=== PATIENT | female | born 1965 | race Caucasian/White ===

== ENCOUNTER → 2021-04-09 | Outpatient (CLI) | payer OTHER ==
[~2021-04-09] MED LIST: AMLO5 PO; CITA20 PO; ESCI20; ESTMEDA PO; FLUO20 PO; LAMO25; LEVSOD50 PO; LORA1; LOVA20 PO; MEDR2.5 PO; PANT40 PO; SUCR1SU PO; TOPI25 PO
[2021-04-11 18:53] LABS: CORONAVIRUS (COVID19) CSH-NRL Negative (Negative)
== END ==
LOC: LAB 14:23 → LAB EV 14:23 → LAB SHORT 14:23
PROVIDERS: Physician Assistant Medical
DX: U07.1 COVID-19 (principal); Z20.822 Contact with and (suspected) exposure to COVID-19
CPT/HCPCS: U0003

== ENCOUNTER 2021-05-30 09:42 | Inpatient (IN) | payer OTHER ==
[~2021-05-30] VITALS: Ht 162.6 cm; Wt 76.0 kg
--- NOTE | 2021-05-30 10:32 | NUR ---
05/30/21 Lisandra2 Leonora Acuña CALL LIGHT WITHIN REACH.
--- NOTE | 2021-05-30 11:25 | NUR ---
05/30/21 1125 [address] USED FOR CHOLANGIOGRAM DURING SURGERY BY DR WESLEY.
--- NOTE | 2021-05-30 14:58 | NUR ---
05/30/21 1458 JAMISON HAGEN FIRST DOSE FENTANYL 25MCG GIVEN 1450- PAIN 02/02
--- NOTE | 2021-05-30 19:26 | NUR ---
SHIFT SUMMARY SINCE ARRIVING TO THE UNIT THIS AFTERNOON, PT HAS DONE WELL. UP TO VOID & AMBULATE TO BATHROOM SEVERAL TIMES. TOLERATING ICE CHIPS WELL. BUT DID STRUGGLE A BIT w/ PAIN MANAGEMENT. SPOKE w/ DR & INCREASED GENERAL ASSIGNMENT REPORTER; PT EDUCATED & IS THANKFUL.
[2021-05-31 04:30] LABS: BASOPHILS ABSOLUTE AUTO 0.04 K/mm3 (0.00-0.23); BASOPHILS PERCENT AUTO 0 % (0-2); EOSINOPHILS PERCENT AUTO 0 % (0-6); Hematocrit 33.3 % (33.0-51.0); Hemoglobin 10.7 g/dL (11.5-16.0); IMMATURE GRAN ABSOLUTE AUTO 0.06 K/mm3 (0.00-0.10); IMMATURE GRAN PERCENT AUTO 0 % (0-1); LYMPHOCYTES ABSOLUTE AUTO 1.42 K/mm3 (0.84-5.20); LYMPHOCYTES PERCENT AUTO 9 % (21-46); MONOCYTES ABSOLUTE AUTO 1.24 K/mm3 (0.16-1.47); MONOCYTES PERCENT AUTO 8 % (4-13); Mean Corpuscular HGB 29.1 pg (26.0-34.0); Mean Corpuscular HGB Conc 32.1 g/dL (31.5-36.5); Mean Corpuscular Volume 91 fL (80-100); Mean Platelet Volume 11.4 fL (9.1-12.4); NEUTROPHILS ABSOLUTE AUTO 13.65 K/mm3 (1.96-9.15); NEUTROPHILS PERCENT AUTO 83 % (41-73); Platelet Count 277 K/mm3 (150-400); RDW Coefficient Variation 15.2 % (11.7-14.2); RDW Standard Deviation 49.6 fL (35.1-46.3); Red Blood Cell Count 3.68 M/mm3 (3.80-5.20); White Blood Cell Count 16.41 K/mm3 (4.00-11.30)
[2021-05-31 04:54] LABS: Anion Gap 5 mmol/L (6-16); Blood Urea Nitrogen 7 mg/dL (8-24); Bun/Creatinine Ratio 12.3 (12.0-20.0); CO2, Blood 28 mmol/L (21-32); Calcium, Blood 8.6 mg/dL (8.5-10.1); Chloride, Blood 106 mmol/L (98-108); Creatinine, Blood 0.57 mg/dL (0.40-1.00); Glomerular Filtration Rate >60 (60-); Glucose, Blood 133 mg/dL (70-99); Potassium, Blood 4.6 mmol/L (3.5-5.5); Sodium, Blood 139 mmol/L (136-145)
--- NOTE | 2021-05-31 04:54 | NUR ---
SHIFT SUMMARY PT HAS BEEN A&O X4 AND IN PLEASENT MOOD T/O SHIFT. TOLERATING CHIPS AND VOIDING WELL. BT HYPOACTIVE IN ALL 4 Q'S, PT DENIED N/V. CALL LIGHT W/ IN REACH. DRESSING C/D/I. VSS.
--- NOTE | 2021-05-31 14:34 | NUR ---
05/31/21 1434 Tere Ayala PT WENT RIGHT FROM PAR TO ROOM 209. SEE PAR NOTES.
--- NOTE | 2021-05-31 15:09 | NUR ---
SHIFT SUMMARY PT HAS DONE VERY WELL TODAY. TOLERALTING CLEAR LQ's BUT TAKING IT SLOW. HAS NOT STARTED TO PASS GAS YET BUT DENIES N/V. AMBULATING FREQ IN HALLWAYS. PAIN WELL MANAGED w/ INSPECTOR STRUCTURAL BONDING. ABD SOFT, NONTENDER. CONTINUES TO REPORT PAIN ONLY IN L SIDE.
--- NOTE | 2021-05-31 15:54 | NUR ---
TRANSFER OF CARE TO KATE HERNANDEZ.
--- NOTE | 2021-05-31 17:22 | NUR ---
PATIENT SITTING UP IN BED WITH NO SIGNS OR SYMPTOMS ACUTE DISTRESS NOTED. CALL LIGHT AND WATER IN EASY REACH. ABLE TO MAKE NEEDS AND WANTS KNOWN. AAO X 4. NO COMPLAINTS OF PAIN AT THIS TIME. NO GAS OF YET PER PATIENT. NO COMPLAINTS OF NAUSEA. WILL MONITOR.
--- NOTE | 2021-06-01 05:27 | NUR ---
SHIFT SUMMARY POD 2 FOR LAP KRISTINE W/CHOLEANGIOGRAM AND HERNIA REPAIR W/SMALL BOWEL RESECTION. PT IS A&O X4 AND PLEASANT. HER PAIN IS WELL CONTROLLED W/SEAL DELIVERY VEHICLE TEAM TECHNICIAN PUMP. PT IS ABLE TO GET UP AND USE RESTROOM INDEPENDENTLY. TOLERATING CLEAR LIQUID DIET W/O REPORT OF N/V. DENIES PASSING FLATUS BUT HAS BEEN ABLE TO BURP. PT HAS RESTED IN ROOM THROUGHOUT SHIFT. CALL LIGHT IS WITHING REACH AND PT CALLS APPROPRIATELY.
--- NOTE | 2021-06-01 17:55 | NUR ---
SHIFT SUMMARY PT POD #2 FOR LAP KRISTINE AND INCARCERATED HERNIA REPAIR WITH A SMALL BOWEL RESECTION. LAP SITES CDI. PT A/O X4 AND PLEASANT. ROOF MECHANIC PUMP DC'D AND PT'S PAIN IS WELL CONTROLLED WITH ORAL PAIN MEDICATION. PT AMBULATES IND TO THE BATHROOM AND IN THE HALLS. NO FLATUS OR BM REPORTED THIS SHIFT. VSS. WILL REPORT TO SOCORRO LOVE.
--- NOTE | 2021-06-02 07:15 | NUR ---
SHIFT SUMMARY POD3 LAP KRISTINE/HERNIA REPAIR/SMALL BOWEL RESECTION, A/O X4, VSS, TOLERATING PO, AMBULATING, VOIDING, NO BM YET, PAIN MANAGED PER EMAR. NO ACUTE EVENTS THIS SHIFT, CALL LIGHT IN REACH, REPORT GIVEN TO DAY RN.
[2021-06-02] MEDS ORDERED: MIRALAX17 GM PO (11:55)
[2021-06-02] MEDS ORDERED: HYDR1TAB94 PO (11:55)
--- NOTE | 2021-06-02 13:50 | NUR ---
DISCHARGE SUMMARY PT POD #4 FOR LAP KRISTINE/SB RESECTION/HERNIA REPAIR. PT IS A/O X4 AND ABLE TO MAKE NEEDS KNOWN. TOLERATING A FULL LIQUID WELL WITH NO NAUSEA. ABD PAIN NOTED, ESPECIALLY IN THE L SIDE. PAIN MANAGED WITH ORAL PAIN MEDICATION. GAUZE DRESSING CHANGED ON ABD. WENT OVER DISCHARGE INSTRUCTIONS WITH CHARGE NURSE AND DC'D HOME.
== END 2021-06-02 13:45 | disposition home or self-care (01) | DRG 331 ==
LOC: ORSCSDS 09:42 → SURS 14:25
PROVIDERS: ADMIT Surgery
PROC: 0DB80ZZ Excision of Small Intestine, Open Approach (ICD-10-PCS; 2021-05-30)
PROC: 0WQF0ZZ Repair Abdominal Wall, Open Approach (ICD-10-PCS; 2021-05-30)
PROC: BF101ZZ Fluoroscopy of Bile Ducts using Low Osmolar Contrast (ICD-10-PCS; 2021-05-30)
PROC: 0FT44ZZ Resection of Gallbladder, Percutaneous Endoscopic Approach (ICD-10-PCS; principal; 2021-05-30 11:00)
DX: K43.0 Incisional hernia with obstruction, without gangrene (principal); K80.20 Calculus of gallbladder without cholecystitis without obstruction; F41.9 Anxiety disorder, unspecified; F32.A Depression, unspecified; K21.9 Gastro-esophageal reflux disease without esophagitis; I10 Essential (primary) hypertension; E03.9 Hypothyroidism, unspecified; Z98.84 Bariatric surgery status; Z79.899 Other long term (current) drug therapy; Z79.890 Hormone replacement therapy
CPT/HCPCS: 36415; 74300; 80048; 85025; 88304; A9270; C1894; J0690; J1100; J1650; J1885; J2250; J2370; J2405; J2704; J2710; J3010; J7040; J7120

== ENCOUNTER 2021-10-29 13:32 | Emergency (ER) | payer OTHER ==
[~2021-10-29] VITALS: Ht 162.6 cm; Wt 74.8 kg
[~2021-10-29 13:32] MED LIST changes: +HYDR1TAB94 PO; +MIRALAX17 GM PO
[2021-10-29] MEDS ORDERED: Prednisone20 MG PO (15:47)
== END 2021-10-29 16:25 | disposition home or self-care (01) ==
LOC: ER 13:32
DX: M54.50 Low back pain, unspecified (principal); I10 Essential (primary) hypertension; E78.5 Hyperlipidemia, unspecified; K21.9 Gastro-esophageal reflux disease without esophagitis; Z79.899 Other long term (current) drug therapy
CPT/HCPCS: 96372; 99283-25; J1885; J7512

== ENCOUNTER → 2023-01-23 | Outpatient (CLI) | payer OTHER ==
[~2023-01-23] MED LIST changes: +Prednisone20 MG PO
[2023-01-23 13:56] LABS: BASOPHILS ABSOLUTE AUTO 0.04 K/mm3 (0.00-0.23); BASOPHILS PERCENT AUTO 1 % (0-2); EOSINOPHILS ABSOLUTE AUTO 0.04 K/mm3 (0.00-0.68); EOSINOPHILS PERCENT AUTO 1 % (0-6); Hematocrit 37.7 % (33.0-51.0); Hemoglobin 12.3 g/dL (11.5-16.0); IMMATURE GRAN PERCENT AUTO 0 % (0-1); LYMPHOCYTES ABSOLUTE AUTO 1.47 K/mm3 (0.84-5.20); LYMPHOCYTES PERCENT AUTO 31 % (21-46); MONOCYTES ABSOLUTE AUTO 0.34 K/mm3 (0.16-1.47); MONOCYTES PERCENT AUTO 7 % (4-13); Mean Corpuscular HGB 29.9 pg (26.0-34.0); Mean Corpuscular HGB Conc 32.6 g/dL (31.5-36.5); Mean Corpuscular Volume 92 fL (80-100); Mean Platelet Volume 11.6 fL (9.1-12.4); NEUTROPHILS ABSOLUTE AUTO 2.84 K/mm3 (1.96-9.15); NEUTROPHILS PERCENT AUTO 60 % (41-73); Platelet Count 258 K/mm3 (150-400); RDW Standard Deviation 47.3 fL (35.1-46.3); Red Blood Cell Count 4.12 M/mm3 (3.80-5.20); White Blood Cell Count 4.73 K/mm3 (4.00-11.30)
[2023-01-23 15:05] LABS: Alanine Aminotransfer (ALT/SGP 19 U/L (12-78); Albumin, Blood 3.6 g/dL (3.4-5.0); Albumin/Globulin Ratio 1.1 (0.8-1.8); Alk Phos 71 U/L (50-136); Anion Gap 3 mmol/L (6-16); Aspartate Aminotrans (AST/SGOT 19 U/L (12-37); Bilirubin, Total 0.4 mg/dL (0.1-1.0); Blood Urea Nitrogen 12 mg/dL (8-24); Bun/Creatinine Ratio 20.6 (12.0-20.0); CHOL/HDL RATIO 2.8; CO2, Blood 29 mmol/L (21-32); Calcium, Blood 8.9 mg/dL (8.5-10.1); Chloride, Blood 106 mmol/L (98-108); Cholesterol 216 mg/dL (50-200); Creatinine, Blood 0.58 mg/dL (0.40-1.00); Globulin, Blood 3.2 g/dL (2.2-4.0); Glomerular Filtration Rate 105 (60-); Glucose, Blood 97 mg/dL (70-99); HDL Cholesterol 76 mg/dL (>39); LDL/HDL RATIO 1.5; Low Density Lipoprotein Chol 112 mg/dL (0-110); Potassium, Blood 4.5 mmol/L (3.5-5.5); Sodium, Blood 138 mmol/L (136-145); Thyroxine (T4) 10.1 ug/dL (4.8-13.9); Total Protein, Blood 6.8 g/dL (6.4-8.2); Triglycerides 138 mg/dL (30-160); Very Low Density Lipoprot Chol 27 mg/dL (6-32)
== END | disposition home or self-care (01) ==
LOC: LAB SHORT 09:00
PROVIDERS: Family Medicine
DX: Z00.00 Encounter for general adult medical examination without abnormal findings (principal); D51.8 Other vitamin B12 deficiency anemias; E55.9 Vitamin D deficiency, unspecified
CPT/HCPCS: 80053; 80061; 82306; 82607; 84436; 84443; 85025

== ENCOUNTER 2024-04-24 08:13 | Day surgery (SDC) | payer OTHER | END 2024-04-24 23:12 | disposition home or self-care (01) | LOC: MOI US 08:13 | DX: C50.411 Malignant neoplasm of upper-outer quadrant of right female breast (principal) | CPT/HCPCS: 19285; 77065; A4648 ==

== ENCOUNTER 2024-05-06 08:22 | Day surgery (SDC) | payer OTHER ==
[2024-05-06] VITALS (11 sets, daily range): BP systolic 129–151; BP diastolic 68–102
[~2024-05-06] VITALS: Ht 160 cm; Wt 59.8 kg
[~2024-05-06 08:22] MED LIST changes: +CeFAZolin Sodium 2,000 MG in NS 100 ML IV SCH; +LAMO100 PO; +LORA.5 PO; +Lactated Ringer's 1,000 ML IV SCH; +SERT50 PO
[2024-05-06] MEDS ORDERED: Methylene Blue 1% 100 MG/10 ML VIAL ONE (09:42)
[2024-05-06] MEDS ORDERED: EpiNEPhrine 1 MG/1 ML 1ML Vial ONE (09:42)
[2024-05-06] MEDS ORDERED: Bupivacaine 0.5% HCl 5 MG/ML 30MLVIAL ONE (09:43)
--- NOTE | 2024-05-06 09:52 | NUR ---
History, Chart, Medications and Allergies reviewed before start of procedure. Pre-Op teaching done. Pt verbalizes understanding. Ambulatory in Day Surgery WITH STEADY GAIT. CLOTHES AND SHOES PLACED IN BELONGINGS BAG UNDER BED. GLASSES AND TOP DENTURE (FLIPPER) PLACED IN PACU. PT STATES NOSE RING CAN NOT BE REMOVED. LEOPOLDO REFUSAL SIGNED AND PLACED IN CHART.
[2024-05-06] MEDS ORDERED: FentaNYL Citrate 50 MCG/ML 2 ML Injection ONE ×2 (09:58→11:44)
[2024-05-06] MEDS ORDERED: propofoL 20 ML IV ONE (09:58)
[2024-05-06] MEDS ORDERED: Midazolam HCl 1MG / ML 2ML Vial ONE (09:59)
[2024-05-06] MEDS ORDERED: Ondansetron HCl 2 MG / ML 2ML Vial ONE (10:29)
[2024-05-06] MEDS ORDERED: Glycopyrrolate 0.2 MG/ML 5ML VIAL ONE (10:29)
[2024-05-06] MEDS ORDERED: Dexamethasone Sod Phos 10 MG/ML 1ML VIAL ONE (10:29)
[2024-05-06] MEDS ORDERED: Ketorolac Tromethamine 30mg Vial ONE (10:29)
[2024-05-06] MEDS ORDERED: ePHEDrine Sulfate 50 MG/ML 1ML Injection ONE (10:46)
[2024-05-06] MEDS ORDERED: HYDROmorphone HCl/Pf 1MG SYR ONE (11:51)
--- NOTE | 2024-05-06 12:13 | NUR ---
PT TO DAY SURGERY STEP DOWN FROM PACU WITH RIGHT BREAST LUMPECTOMY WITH SAMANTHA UTILITY ARBORIST LOCALIZATION SENTINEL LYMPH NODE BIOPSY. BEDSIDE REPORT RECEIEVED. PT IS AWAKE, ALERT AND ORIENTED; ABLE TO MOVE SELF IN BE. DIASTOLIC BP ELEVATED. PT HAS BREAST BINDER IN PLACE AND INCISION IS COVERED WITH GUAZE AND CLOSED WITH EXOFIN, IT IS C/D/I. PT EQUESTING ICE CHIPS AND ICE PACK
--- NOTE | 2024-05-06 12:20 | NUR ---
ICE CHIPS GIVEN. ICE PACK TO RIGHT BREAST AREA/
[2024-05-06] MEDS ORDERED: HYDROcodone 5-APAP 325 TAB PO PRN (12:30)
--- NOTE | 2024-05-06 12:36 | NUR ---
DR WESLEY NOTIFIED ABOUT PT HAVING HIGH PAIN OF 8/10 AND PT WANTING PAIN MEDICATION FOR HOME FOR BREAKTHROUGH PAIN. DR WESLEY CALLING IN PAIN MEDICATION TO PT PHARMACY
--- NOTE | 2024-05-06 12:49 | NUR ---
PO FLUIDS AND CRACKERS BEING TOLERATED
--- NOTE | 2024-05-06 12:49 | NUR ---
Discharge instructions reviewed with patient. Patient verbalizes understanding. Copy given to patient to take home. Patient States Post-Procedure ride home has been arranged.
--- NOTE | 2024-05-06 13:21 | NUR ---
Patient up to Ambulate independently. Gait steady. Pt up to void
--- NOTE | 2024-05-06 13:23 | NUR ---
Discharged via wheelchair to private car for ride home.
== END 2024-05-06 13:23 | disposition home or self-care (01) ==
LOC: ORSCMMR 08:22 → NM 08:22 → ORSCMMR 08:23 → NM 09:00
PROVIDERS: Surgery
PROC: 0HBT0ZZ Excision of Right Breast, Open Approach (ICD-10-PCS; principal; 2024-05-06 10:00)
PROC: 0HBT0ZX Excision of Right Breast, Open Approach, Diagnostic (ICD-10-PCS; principal; 2024-05-06 10:00)
DX: C50.411 Malignant neoplasm of upper-outer quadrant of right female breast (principal); I10 Essential (primary) hypertension; E78.5 Hyperlipidemia, unspecified; F41.9 Anxiety disorder, unspecified; R56.9 Unspecified convulsions; F31.9 Bipolar disorder, unspecified; Z79.899 Other long term (current) drug therapy
CPT/HCPCS: 38792; 88307; 88342; A9270; A9520; J0171; J0690; J1100; J1170; J1885; J2250; J2405; J2704; J3010; J7120; Q9968

== ENCOUNTER → 2024-06-02 | Outpatient (CLI) | payer OTHER ==
[~2024-06-02] MED LIST changes: -CeFAZolin Sodium 2,000 MG in NS 100 ML IV SCH; -Lactated Ringer's 1,000 ML IV SCH
== END | disposition home or self-care (01) ==
LOC: LAB 11:30 → LAB SHORT 11:30
DX: N64.89 Other specified disorders of breast (principal)
CPT/HCPCS: 87070; 87075; 87077; 87147; 87186; 87205

== ENCOUNTER 2024-08-31 06:23 | Day surgery (SDC) | payer OTHER ==
[~2024-08-31] VITALS: Ht 162.6 cm; Wt 62.6 kg
[2024-08-31] VITALS (9 sets, daily range): BP systolic 95–131; BP diastolic 58–74
--- NOTE | 2024-08-31 07:07 | NUR ---
PATIENT REPORTS HX OF MENOPAUSE, POST MINIMUM NO MENSES X12 MONTHS.
--- NOTE | 2024-08-31 07:07 | NUR ---
History, Chart, Medications and Allergies reviewed before start of procedure. Patient confirms NPO status and agrees with scheduled surgery. Patient States Post-Procedure ride home has been arranged with her mom.
[2024-08-31] MEDS ORDERED: Lactated Ringer's 1,000 ML IV SCH (07:20)
[2024-08-31] MEDS ORDERED: propofoL 20 ML IV ONE (07:36)
--- NOTE | 2024-08-31 07:50 | NUR ---
08/31/24 0750 Greg Reid CONFIRMED AND REVIEWED H&P, MEDCICATIONS, ALLERGIES, MEDICAL HISTORY, RESPIRATORY HISTORY, VITAL SIGNS, 3-LEAD EKG, CONSENTS, AND PHYSICIAN ORDERS. PATIENT CONFIRMS NPO STATUS AND AGREES WITH SCHEDULED PROCEDURE. MONITOR INTACT WITH CONTINUOUS PULSE OXIMETRY, CAPNOGRAPHY, 3-LEAD EKG, INTERMITTENT BP. SUPPLEMENTAL O2 TO BE TITRATED THROUGHOUT PROCEDURE TO MAINTAIN O2 SATURATION ABOVE 90%. PATIENT DETERMINED TO BE ASA APPROPRIATE FOR PROPOFOL SEDATION PRIOR TO START OF PROCEDURE BY DR. POPE
--- NOTE | 2024-08-31 08:38 | NUR ---
Patient up to Ambulate independently. Gait steady. Discharge instructions reviewed with patient. Patient verbalizes understanding. Copy given to patient to take home. Patient States Post-Procedure ride home has been arranged. Discharged via wheelchair to private car for ride home. PT DENIES PAIN,TOLERATING PO. REPORTS READY TO GO HOME. PER DR NIKO GAONA/3 YEARS.
== END 2024-08-31 08:38 | disposition home or self-care (01) ==
LOC: ORSCMMR 06:23 → ORD 09-01 07:30
PROVIDERS: Internal Medicine Gastroenterology
PROC: 0DJD8ZZ Inspection of Lower Intestinal Tract, Via Natural or Artificial Opening Endoscopic (ICD-10-PCS; principal; 2024-08-31 07:30)
DX: Z12.11 Encounter for screening for malignant neoplasm of colon (principal); K64.8 Other hemorrhoids; Z80.0 Family history of malignant neoplasm of digestive organs; Z85.3 Personal history of malignant neoplasm of breast; K21.9 Gastro-esophageal reflux disease without esophagitis; I10 Essential (primary) hypertension; F32.A Depression, unspecified; E03.9 Hypothyroidism, unspecified; Z79.899 Other long term (current) drug therapy
CPT/HCPCS: J2704; J7120

== ENCOUNTER 2025-01-28 11:57 | Day surgery (SDC) | payer OTHER ==
[~2025-01-28] VITALS: Ht 162.6 cm; Wt 61.0 kg
[~2025-01-28 11:57] MED LIST changes: +Lactated Ringer's 1,000 ML IV ONE; +propofoL 50 ML IV ONE
[2025-01-28] MEDS ORDERED: [UNRECOGNIZED DRUG - CODE] (12:45)
[2025-01-28] MEDS ORDERED: Lactated Ringer's 1,000 ML IV ONE (13:26)
[2025-01-28 14:25] VITALS: BP 104/58
== END 2025-01-28 14:32 | disposition home or self-care (01) ==
LOC: ORSCSDS 11:57
PROVIDERS: Surgery
PROC: 0DJD8ZZ Inspection of Lower Intestinal Tract, Via Natural or Artificial Opening Endoscopic (ICD-10-PCS; principal; 2025-01-28 13:30)
PROC: 0DJ08ZZ Inspection of Upper Intestinal Tract, Via Natural or Artificial Opening Endoscopic (ICD-10-PCS; principal; 2025-01-28 13:30)
DX: D50.9 Iron deficiency anemia, unspecified (principal); Z80.0 Family history of malignant neoplasm of digestive organs; Z98.84 Bariatric surgery status; F41.9 Anxiety disorder, unspecified; E78.5 Hyperlipidemia, unspecified; K21.9 Gastro-esophageal reflux disease without esophagitis; E03.9 Hypothyroidism, unspecified; E66.9 Obesity, unspecified; Z79.899 Other long term (current) drug therapy
CPT/HCPCS: J2704; J7120